=== PATIENT | female | born 1950 | race Caucasian/White ===

== ENCOUNTER 2024-01-30 11:19 | Outpatient (CLI) | payer MEDICARE, SELFPAY ==
[2024-01-30 12:30] LABS: Alanine Aminotransferase 24 U/L (6-35); Albumin Level 4.5 g/dL (3.5-5.1); Alkaline Phosphatase 87 U/L (38-126); Anion Gap 6 mmol/L (4-12); Aspartate Amino Transferase 30 U/L (14-36); Bilirubin,Total 1.3 mg/dL (0.2-1.3); Blood Urea Nitrogen 21 mg/dL (7-17); Calcium 9.3 mg/dL (8.4-10.2); Carbon Dioxide 23 mmol/L (22-30); Chloride 107 mmol/L (98-107); Cholesterol 180 mg/dL (0-200); Estimated Glomerular Filt Rate 49; Glucose 106 mg/dL (65-110); HDL Direct 96 mg/dL; Potassium 4.8 mmol/L (3.4-5.0); Sodium 136 mmol/L (137-145); Triglycerides 96 mg/dL (<150)
[2024-01-30 12:41] LABS: LDL Cholesterol Direct 66 mg/dL
== END 2024-01-30 11:20 | disposition home or self-care (01) ==
PROVIDERS: PCP Internal Medicine; Visit Provider Internal Medicine
DX: E78.5 Hyperlipidemia, unspecified (principal); I10 Essential (primary) hypertension
CPT/HCPCS: 36415; 80053; 80061; 84443

== ENCOUNTER 2024-02-15 14:36 | Outpatient (CLI) | payer MEDICARE, SELFPAY ==
--- NOTE | ~2024-02-15 | US_ITS ---
EXAMINATION: US carotid duplex BI DATE: 02/15/2024 15:24 INDICATION: Carotid atherosclerosis and stenosis TECHNIQUE: Grayscale, color Doppler, and pulsed Doppler images of the cervical carotid arteries were obtained. The degree of vessel stenosis is placed in one of the following categories: normal, <50%, 5 0-69%, >=70% but less than near-occlusion, near-occlusion, or total occlusion. Note that percent sten osis relative to normal distal artery lumen diameter is indirectly measured from velocity measurement s as described by Geovany, et al. Radiology 2003; 229:340-346. COMPARISON: None. FINDINGS: RIGHT: The right common carotid artery (CCA) peak systolic velocity (PSV) is 70 cm/s. The right internal car otid artery (ICA) PSV is 72 cm/s. The right ICA end-diastolic velocity (EDV) is 18 cm/s. The right IC A/CCA PSV ratio is 1.0. Grayscale and color Doppler images yield an estimate of <50% diameter reducti on from plaque in the ICA. The external carotid artery (ECA) PSV is 109 cm/s. There is antegrade flow in the right vertebral artery. LEFT: The left CCA PSV is 68 cm/s. The left ICA PSV is 130 cm/s. The left ICA EDV is 31 cm/s. The left ICA/ CCA PSV ratio is 2.0. Grayscale and color Doppler images yield an estimate of 50-69% diameter reducti on from plaque in the ICA. The ECA PSV is 118 cm/s. There is antegrade flow in the left vertebral art toni. IMPRESSION: 1. <50% stenosis in the right internal carotid artery. 2. 50-69% stenosis in the left internal carotid artery. Reviewed, dictated and finalized at location B. COLLECTOR
== END 2024-02-15 14:37 | disposition home or self-care (01) ==
PROVIDERS: Visit Provider Internal Medicine
DX: I65.29 Occlusion and stenosis of unspecified carotid artery (principal)
CPT/HCPCS: 93880

== ENCOUNTER 2024-02-26 09:32 | Outpatient (CLI) | payer MEDICARE, SELFPAY ==
--- NOTE | ~2024-02-26 | NM_ITS ---
EXAMINATION: NM anny stress w perfusion DATE: 02/26/2024 12:00 INDICATION: Chest pain. TECHNIQUE: Rest images were obtained following intravenous administration of 9.5 mCi Tc99m tetrofosmi n (Myoview). The patient was infused intravenously with Lexiscan (regadenoson). Then, 28.9 mCi Tc99m tetrofosmin (Myoview) was administered intravenously, and supine and prone stress images were obtaine d. Data was reconstructed into short axis and horizontal and vertical long axis SPECT images. Gated S PECT images were also obtained. COMPARISON: None. FINDINGS: There is no definite reversible or fixed perfusion abnormality to suggest ischemia or infar ction. There is no segmental wall motion abnormality. Left ventricular ejection fraction measures > 70%. IMPRESSION: 1. No definite ischemia or infarct. 2. Normal left ventricular ejection fraction measuring > 70%. Reviewed, dictated and finalized at location A. ECT SAFETY MANAGER
--- NOTE | 2024-02-26 10:35 | EST_ITS ---
Patient Info Name: Mali De Paz Age: 73 years : 1950 Gender: Female Ht: 63 in Wt: 230 lbs BSA: 2.21 m2 HR: 63 bpm BP: 151 / 83 mmHg Exam Date: 02/26/2024 11:04 AM Exam Location: Echo Lab Patient Status: Outpatient Admit Date: 02/26/2024 Staff Ordering Physician: Danis Mehta DO Attending Provider: Danis Mehta DO Exercise Technologist: Eun Clark [facility] Exercise Physician: Faizan Siegel DO Exam Type: CA stress anny w NM Study Info A regadenoson stress test was performed. Summary 1. 1. Negative lexiscan stress test for ischemic ST changes by ECG criteria. 2. 2. Baseline hypertension. 3. 3. Nuclear scan to follow and will be reported separately. Please correlate with it. 4. 4. Patient informed of the above results. Protocol: Lexiscan Stress ECG Details Stage: REST Duration (min): 1 min : 29 sec HR (bpm): 60 SBP (mmHg): 151 DBP (mmHg): 83 Stage: REST Duration (min): 7 min : 14 sec HR (bpm): 60 SBP (mmHg): 151 DBP (mmHg): 83 Stage: STAGE 1 Duration (min): 0 min : 59 sec HR (bpm): 81 SBP (mmHg): 159 DBP (mmHg): 71 Stage: RECOVERY Duration (min): 1 min : 0 sec HR (bpm): 78 SBP (mmHg): 159 DBP (mmHg): 71 Stage: RECOVERY Duration (min): 2 min : 0 sec HR (bpm): 73 SBP (mmHg): 159 DBP (mmHg): 71 Stage: RECOVERY Duration (min): 3 min : 0 sec HR (bpm): 73 SBP (mmHg): 159 DBP (mmHg): 71 Stage: RECOVERY Duration (min): 3 min : 33 sec HR (bpm): 71 SBP (mmHg): 151 DBP (mmHg): 66 Rest HR: 60 bpm Peak HR: 81 bpm Rest Sys BP: 151 mmHg Peak Sys BP: 159 mmHg Max Pred HR: 149 bpm % Max Pred HR: 54 % Target HR: 127 bpm Max RPP: 12,879 bpm*mmHg Termination Reason: Completed protocol Cardiac Symptoms: Shortness of breath Total Time: 1 min : 0 sec Rest Beverly BP: 83 mmHg Peak Beverly BP: 71 mmHg Total Dose: 0.4 mg Resting ECG Sinus rhythm. Stress ECG No ST changes. Arrhythmias None. Report Signatures
== END 2024-02-26 09:33 | disposition home or self-care (01) ==
PROVIDERS: PCP Internal Medicine; Visit Provider Internal Medicine
DX: R07.9 Chest pain, unspecified (principal)
CPT/HCPCS: 78452; 93017; A9502; J2785

== ENCOUNTER 2024-04-11 10:32 | Outpatient (CLI) | payer MEDICARE, SELFPAY | END 2024-04-11 10:33 | disposition home or self-care (01) | PROVIDERS: PCP Internal Medicine; Visit Provider Internal Medicine | DX: Z12.2 Encounter for screening for malignant neoplasm of respiratory organs (principal); Z87.891 Personal history of nicotine dependence | CPT/HCPCS: 71271 ==

== ENCOUNTER 2024-09-16 07:50 | Outpatient (CLI) | payer MEDICARE, SELFPAY ==
--- NOTE | ~2024-09-16 | MM_ITS ---
EXAMINATION: screening [facility] [place] BI w arpita INDICATION: Asymptomatic, referred for screening mammogram COMPARISON: 07/13/2023 and 02/22/2022 TECHNIQUE: Digital Breast Tomosynthesis CC, MLO views of Both breasts were obtained with computer-ai ded detection to assist in interpretation of the study. FINDINGS: There are scattered areas of fibroglandular density. There is an asymmetry seen on the MLO view in the Superior right breast at anterior one third. In add ition, there is an asymmetry seen on the cc view in the lateral right breast at middle to posterior t hird. Elsewhere, there are no mammographic features of malignancy. IMPRESSION: 1. Right breast asymmetries. 2. No evidence of malignancy in the Left breast. RECOMMENDATION: Right breast Diagnostic mammogram with true lateral, appropriate spot compression views and an ultras ound if needed. BI-RADS Category 0: Incomplete: Needs additional imaging evaluation. Reviewed, dictated and finalized at location B. IMPRESSION: 1. Right breast asymmetries. 2. No evidence of malignancy in the Left breast. RECOMMENDATION: Right breast Diagnostic mammogram with true lateral, appropriate spot compressi on views and an ultrasound if needed. BI-RADS Category 0: Incomplete: Needs additional imaging evaluation.
== END 2024-09-16 07:51 | disposition home or self-care (01) ==
LOC: ANHIMG 07:51
PROVIDERS: PCP Internal Medicine; Visit Provider Internal Medicine
DX: Z12.31 Encounter for screening mammogram for malignant neoplasm of breast (principal); R92.8 Other abnormal and inconclusive findings on diagnostic imaging of breast
CPT/HCPCS: 77063; 77067

== ENCOUNTER 2024-10-10 13:17 | Outpatient (CLI) | payer MEDICARE, SELFPAY ==
--- OUTSIDE RECORDS SUMMARY | 2023-11-14 05:15 | XMS_ITS ---
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 Phone Lary Duque Primary Care Provider BROCK Ojeda [phone] Encounters Encounter Location Date Provider Diagnosis [facility] Nephrology [id number] [place] [address] 11/14/2023 BROCK FERRO Plan Of Treatment No Information Progress Notes * Mali DE PAZ YDOB: [birth year] (74 yo F)Acc No.[id number]:11/14/2023 Progress Notes Patient: Mali EDMOND Provider: Mik Ferro MD :1950 A ge:73 Y S ex:Female Date:11/14/2023 Address:[address] [place], [place]-[address] Pcp:Lary Duque Subjective: * Chief Complaints: * * Medical History: Objective: * Vitals: Assessment: Plan: * Treatment: * Images: Care Plan Details* * Electronic signature of BROCK FERRO MD on 10/10/2024 at 02:25 PM EDT Sign off status: Pending * Provider: Mik Ferro MD Date: Generated for Maryanni ng/Favaniag/eTransmitting on: 0 10/10/2024 02:25 PM EDT
--- NOTE | ~2024-10-10 | MMUS_ITS ---
EXAMINATION: MM diagnostic franci RT w arpita, US breast RT limited INDICATION: 74-year old female; BI-RADS 0, right breast asymmetries COMPARISON: 09/16/2024 TECHNIQUE: Digital breast tomosynthesis True lateral and spot compression CC and MLO views of the RIGHT breast were obtained with computer-aided detection to assist in interpretation of the study. FINDINGS: There are scattered areas of fibroglandular density. The asymmetry of concern in the Superior right breast effaces on spot compression views compatible with superimposition of fibroglandular tissue. The asymmetry of concern in the Lateral right breast persists as a circumscribed mass. Ultrasound was performed for further evaluation. RIGHT BREAST ULTRASOUND FINDINGS: Targeted evaluation of the area of concern was completed. There is a 0.8 x 0.9 x 0.7 cm anechoic simple cyst at subareolar location in the RIGHT breast that correlates to the area of Mammographic finding. There are additional smaller simple cysts seen at 11:00, 8 cm from the nipple the measure up to 1.03 cm and a 0.4 cm simple cyst at 11:00, 7 cm from the nipple. IMPRESSION: Benign RIGHT breast cyst correlates to mammographic finding. No further investigation necessary. RECOMMENDATION: ANNUAL SCREENING BILATERAL MAMMOGRAPHY BI-RADS 2, BENIGN Reviewed, dictated and finalized at location B. IMPRESSION: Benign RIGHT breast cyst correlates to mammographic finding. No further investi gation necessary. RECOMMENDATION: ANNUAL SCREENING BILATERAL MAMMOGRAPHY BI-RADS 2, BENIGN
--- OUTSIDE RECORDS SUMMARY | 2024-10-10 13:25 | XMS_ITS | Patient Health Record ---
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 Role Phone Lary Duque Primary Care Provider BROCK Ojeda Unavailable [phone] Allergies No Known Allergies Reason For Referral No Information Medications Medication SIG (Take, Route, Frequency, Duration) Notes Start Date End Date Status Trelegy Ellipta 200-62.5-25 MCG/ACT 1 puff Inhalation Once a day; Duration: 30 days Active Losartan Potassium 25 MG 1 tablet Orally Once a day Active Atorvastatin Calcium 20 MG 1 tablet Oral ly Once a day Active Carvedilol 25 MG 1 tablet with food O rally Twice a day Active Losartan Potassium 50 MG 1 tablet Orally Once a day Active Problems Problem Type SNOMED Code ICD Code Onset Dates Problem Status W/U Status Risk Notes Problem Essential hypertension (84602532) Essential (primary) hypertension (I10) Active confirmed Problem Chronic kidney disease due to hypertension (36596129446009 0) Hypertensive chronic kidney disease with stage 1 through stage 4 chronic kidney disease, or unspecified chronic kidney disease (I12.9) Active confirmed Problem Chronic kidney disease stage 2 (343647594) Chronic kidney disease, stage 2 (mild) (N18.2) Active confirmed baseline SCr low 1.0s Problem Renal tubular disorder (disorder) (22576171) 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, 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) Active confirmed Plan Of Treatment Future Test Test Name Order Date Renal Panel (10) 11/06/2023 Insurance Providers Payer Name Payer Address Payer Phone Subscriber Number Group Number Insured Name Patient Relationship to Insured Coverage Start Date Coverage End Date [employer] [place] J10 [address] [address] [place] [phone] [id number] Mali De Paz Self - patient is the insured [facility] [address] [address] [place] [address] [id number] Mali De Paz Self - patient is the insured Medical (General) History Medical History History ICD Code Hypertension COPD Surgical History Surgery Date(Month/Year) Hysterectomy Bilt knee replacements Rt Hip replacement Lt hip replacement Rt eye
== END 2024-10-10 13:18 | disposition home or self-care (01) ==
LOC: ANHFOHIMG 13:18
PROVIDERS: PCP Internal Medicine; Visit Provider Nurse Practitioner
DX: R92.8 Other abnormal and inconclusive findings on diagnostic imaging of breast (principal); N60.01 Solitary cyst of right breast
CPT/HCPCS: 76642; 77061; 77065; G0279

== ENCOUNTER 2025-01-07 10:46 | Outpatient (CLI) | payer MEDICARE, SELFPAY ==
[2025-01-07 12:03] LABS: Hematocrit 40.6 % (37.0-47.0); Hemoglobin 13.3 g/dL (12.0-15.0); Immature Granulocyte Percent A 0.3 % (0-0.5); Lymphocytes Absolute Auto 1.78 K/mm3 (0.9-3.2); Mean Corpuscular HGB Conc 32.8 g/dl (32-36); Mean Corpuscular Hemoglobin 30.9 pg (26-34); Mean Corpuscular Volume 94.2 fl (80-100); Nucleated Red Blood Cells Absolute Auto 0.000 K/mm3 (0.0-0.012); Nucleated Red Blood Cells Perc 0.0 % (0.0-0.2); Platelet Count Result 288 k/mm3 (150-375); Red Blood Count 4.31 M/mm3 (4.2-5.4); White Blood Count 9.2 K/mm3 (4.5-10.0)
[2025-01-07 12:27] LABS: Alanine Aminotransferase 30 U/L (6-35); Albumin Level 4.5 g/dL (3.5-5.1); Alkaline Phosphatase 93 U/L (38-126); Anion Gap 7 mmol/L (4-12); Aspartate Amino Transferase 35 U/L (14-36); Bilirubin,Total 1.1 mg/dL (0.2-1.3); Blood Urea Nitrogen 23 mg/dL (7-17); Calcium 9.4 mg/dL (8.4-10.2); Carbon Dioxide 22 mmol/L (22-30); Chloride 105 mmol/L (98-107); Cholesterol 167 mg/dL (0-200); Estimated Glomerular Filt Rate 43; Glucose 105 mg/dL (65-110); HDL Direct 74 mg/dL; Potassium 4.7 mmol/L (3.4-5.0); Sodium 134 mmol/L (137-145); Total Protein 7.9 g/dL (6.3-8.2); Triglycerides 129 mg/dL (<150)
== END 2025-01-07 10:47 | disposition home or self-care (01) ==
PROVIDERS: PCP Internal Medicine; Visit Provider Internal Medicine
DX: E78.5 Hyperlipidemia, unspecified (principal); J44.9 Chronic obstructive pulmonary disease, unspecified; I10 Essential (primary) hypertension; Z13.21 Encounter for screening for nutritional disorder
CPT/HCPCS: 36415; 80053; 80061; 85025